=== PATIENT | male | born 1975 | race Caucasian/White ===

== ENCOUNTER 2016-07-15 01:09 | Emergency (ER) | payer BC ==
[~2016-07-15] VITALS: Ht 182.9 cm; Wt 86.2 kg
[2016-07-15 01:10] VITALS: BP 172/82; PULSE 73; RESP 18; TEMP 98.7; O2SAT 100
--- NOTE | 2016-07-15 01:10 | NUR ---
BROUGHT IMMEDIATELY BACK TO BED #2 VIA WHEELCHAIR, PLACED IN BED #2 AND TRIAGED. REPORT GIVEN TO SPENCER
--- NOTE | 2016-07-15 01:11 | NUR ---
PT IS AOX4, C/O CHEST PAIN . PT STATED THAT HIS PAIN WAS VERY SUDDEN AND CONSTANT WITH PAIN SCALE 8/10, DNIES N/V.
--- NOTE | 2016-07-15 01:15 | NUR ---
ER at bedside examining patient.
[2016-07-15 01:39] LABS: BASOPHILS # (AUTO) 0.1 K/uL (0.0-0.2); BASOPHILS % (AUTO) 0.6 % (0.0-2.0); EOSINOPHILS % (AUTO) 0.3 % (0.0-4.0); HEMATOCRIT 42.1 % (36-54); HEMOGLOBIN 14.2 g/dL (14.0-18.0); LYMPHOCYTES # (AUTO) 3.1 K/uL (1.0-5.5); LYMPHOCYTES % (AUTO) 21.2 % (20.5-51.5); MEAN CORPUSCULAR HEMOGLOBIN 30 pg (27-31); MEAN CORPUSCULAR HGB CONC 34 % (32-36); MEAN CORPUSCULAR VOLUME 89 fL (79.0-98.0); MONOCYTES # (AUTO) 1.2 K/uL (0.0-1.0); MONOCYTES % (AUTO) 8.4 % (1.7-9.3); NEUTROPHILS # (AUTO) 10.1 K/uL (1.8-7.7); NEUTROPHILS % (AUTO) 69.5 % (40.0-70.0); PLATELET COUNT (AUTO) 276 K/uL (130-430); RED BLOOD CELL COUNT(AUTO) 4.72 MIL/uL (4.2-6.2); RED CELL DISTRIBUTION WIDTH 12.4 % (9.0-15.0); WHITE BLOOD COUNT (AUTO) 14.5 K/uL (4.8-10.8)
[2016-07-15 01:44] LABS: CREATININE 0.9 mg/dL (0.55-1.30); POTASSIUM 3.9 mmol/L (3.5-5.1)
[2016-07-15 01:49] LABS: ALBUMIN 3.8 g/dL (3.4-4.8); TOTAL BILIRUBIN 0.4 mg/dL (0.0-1.0); TOTAL PROTEIN, SERUM 8.2 g/dL (6.4-8.3)
[2016-07-15] MEDS ORDERED: IBUPROFEN 800 MG TABLET PO ONE (03:30)
[2016-07-15 03:35] VITALS: BP 135/81; PULSE 73; RESP 16; TEMP 98.7; O2SAT 100
--- NOTE | 2016-07-15 03:35 | NUR ---
Patient given written and verbal discharge instructions and verbalizes understanding. ER MD discussed with patient the results and treatment provided. Patient in stable condition. ID arm band removed. IV catheter removed intact and dressing applied, no active bleeding. Rx of Ibuprofen given. Patient educated on pain management and to follow up with PMD. Pain Scale 0/10. Opportunity for questions provided and answered.
== END 2016-07-15 03:35 | disposition home or self-care (01) ==
LOC: SED 01:09
DX: R07.9 Chest pain, unspecified (principal)
CPT/HCPCS: 36415; 71010; 80053; 84484; 85025; 93005; 99285